=== PATIENT | male | born 1990 | race Caucasian/White ===

== ENCOUNTER 2017-06-09 09:52 | Observation (INO) | payer MEDICAID ==
[2017-06-09] VITALS (11 sets, daily range): BP systolic 95–132; BP diastolic 53–72; PULSE 50–64; RESP 17–20; TEMP 97.8–98.9; O2SAT 98–100
--- NOTE | 2017-06-09 10:34 | PD ---
HPI Chief Complaint: Chest Pain Time Seen by Provider: 10:34 Travel History International Travel<30 days: No Contact w/Intl Traveler<30days: No Traveled to known affect area: No History of Present Illness HPI 26-year-old male came to the emergency room with history of left-sided chest pain. Patient has been there on and off for past 1 month. Pain is worse on movement. No history of shortness of breath. No history of chest trauma. Patient is a smoker. Some family history of cardiac disease especially in his mother. Vital signs were stable. Patient is otherwise a healthy person. [facility] Past Medical History Narrative Medical List of his past medical, surgical, social and family history is read from the nursing note. Medical History: Denies Significant Hx Diminished Hearing: No Tetanus Vaccination: > 5 Years Influenza Vaccination: No Past Surgical History Surgical History: No Previous Surgery Social History Alcohol Use: No Tobacco Use: Yes (4 cigarrettes per day) Substance Use: No Allergies-Medications (Allergen,Severity, Reaction): Coded Allergies: No Known Allergies (Unverified , 06/09/17) Comments No known drug allergies. Reported Meds & Prescriptions Reported Meds & Active Scripts Active No Active Prescriptions or Reported Medications Narrative Medication List of his home medications reviewed from the nursing note. Review of Systems Except as stated in HPI: all other systems reviewed are Neg Physical Exam Narrative GENERAL: Awake, alert, mild distress SKIN: Focused skin assessment warm/dry. HEAD: Atraumatic. Normocephalic. EYES: Pupils equal and round. No scleral icterus. No injection or drainage. ENT: No nasal bleeding or discharge. Mucous membranes pink and moist. NECK: Trachea midline. No JVD. CARDIOVASCULAR: Regular rate and rhythm. No murmur appreciated. RESPIRATORY: No accessory muscle use. Clear to auscultation. Breath sounds equal bilaterally. GASTROINTESTINAL: Abdomen soft, non-tender, nondistended. Hepatic and splenic margins not palpable. MUSCULOSKELETAL: No obvious deformities. No clubbing. No cyanosis. No edema. NEUROLOGICAL: Awake and alert. No obvious cranial nerve deficits. Motor grossly within normal limits. Normal speech. PSYCHIATRIC: Appropriate mood and affect; insight and judgment normal. Data Data Last Documented VS Vital Signs Date Time Temp Pulse Resp B/P Pulse Ox O2 Delivery O2 Flow Rate FiO2 06/09/17 10:50 50 17 125/67 99 Room Air 119/59 06/09/17 09:54 98.2 Orders Electrocardiogram (06/09/17 10:50) Basic Metabolic Panel (Bmp) (06/09/17 10:50) Ckmb (Isoenzyme) Profile (06/09/17 10:50) Complete Blood Count With Diff (06/09/17 10:50) Magnesium (Mg) (06/09/17 10:50) Prothrombin Time / Inr (Pt) (06/09/17 10:50) Troponin I (06/09/17 10:50) Chest, Single Ap (06/09/17 10:50) Ecg Monitoring (06/09/17 10:50) Bilateral Bp Monitoring (06/09/17 10:50) Iv Access Insert/Monitor (06/09/17 10:50) Oximetry (06/09/17 10:50) Oxygen Administration (06/09/17 10:50) Aspirin Chew (Aspirin Chew) (06/09/17 11:00) Sodium Chloride 0.9% Flush (Ns Flush) (06/09/17 11:00) CKMB (06/09/17 10:55) CKMB% (06/09/17 10:55) Admit Order (Ed Use Only) (06/09/17 12:02) Labs Laboratory Tests Test 06/09/17 10:55 White Blood Count 11.9 TH/MM3 Red Blood Count 5.40 MIL/MM3 Hemoglobin 14.9 GM/DL Hematocrit 45.1 % Mean Corpuscular Volume 83.5 FL Mean Corpuscular Hemoglobin 27.7 PG Mean Corpuscular Hemoglobin 33.1 % Concent Red Cell Distribution Width 13.1 % Platelet Count 192 TH/MM3 Mean Platelet Volume 9.5 FL Neutrophils (%) (Auto) 60.9 % Lymphocytes (%) (Auto) 26.4 % Monocytes (%) (Auto) 9.7 % Eosinophils (%) (Auto) 2.6 % Basophils (%) (Auto) 0.4 % Neutrophils # (Auto) 7.2 TH/MM3 Lymphocytes # (Auto) 3.1 TH/MM3 Monocytes # (Auto) 1.2 TH/MM3 Eosinophils # (Auto) 0.3 TH/MM3 Basophils # (Auto) 0.0 TH/MM3 CBC Comment DIFF FINAL Differential Comment Prothrombin Time 12.6 SEC Prothromb Time International 1.1 RATIO Ratio Sodium Level 140 MEQ/L Potassium Level 3.7 MEQ/L Chloride Level 106 MEQ/L Carbon Dioxide Level 26.6 MEQ/L Anion Gap 7 MEQ/L Blood Urea Nitrogen 15 MG/DL Creatinine 1.06 MG/DL Estimat Glomerular Filtration 83 ML/MIN Rate Random Glucose 83 MG/DL Calcium Level 9.4 MG/DL Magnesium Level 2.1 MG/DL Total Creatine Kinase 117 U/L Creatine Kinase MB 1.2 NG/ML Troponin I LESS THAN 0.02 NG/ML MDM Medical Decision Making Medical Screen Exam Complete: Yes Emergency Medical Condition: Yes Medical Record Reviewed: Yes Interpretation(s) Twelve-lead EKG was reviewed by me. Normal sinus rhythm, normal axis, bradycardia, nonspecific ST-T wave changes. Heart rate of 56 bpm. Differential Diagnosis ACS, non-STEMI, nonspecific chest pain Narrative Course 11:57 AM blood test results is back and within normal limit. Chest x-rays within normal limit. Patient will be admitted to the chest pain center. Procedures EKG Prior to Arrival: No Diagnosis Primary Impression: Chest pain Qualified Code: R07.9 - Chest pain, unspecified type Admitting Information Admitting Physician Requests: Observation Scripts No Active Prescriptions or Reported Meds Mohsen Nixon MD Jun 09, 2017 10:34
[2017-06-09] MEDS ORDERED: SODIUM CHLORIDE 0.9% FLUSH 10 ML FLUSH IVF PRN (11:00)
[2017-06-09] MEDS ORDERED: ASPIRIN 81 MG CHEW TAB PO ONE (11:00)
[2017-06-09 11:33] LABS: AUTOMATED NEUTROPHIL # 7.2 TH/MM3 (1.8-7.7); BASOPHIL % 0.4 % (0.0-2.0); EOSINOPHIL # 0.3 TH/MM3 (0-0.4); EOSINOPHIL % 2.6 % (0.0-4.0); HEMATOCRIT 45.1 % (39.0-51.0); HEMO FLAGS DIFF FINAL; LYMPH % 26.4 % (9.0-44.0); LYMPHOCYTE # 3.1 TH/MM3 (1.0-4.8); MEAN CELL VOLUME 83.5 FL (80.0-100.0); MEAN CORPUSCULAR HEMOGLOBIN 27.7 PG (27.0-34.0); MEAN CORPUSCULAR HGB CONC 33.1 % (32.0-36.0); MONO % 9.7 % (0.0-8.0); NEUT % 60.9 % (16.0-70.0); PLATELET COUNT 192 TH/MM3 (150-450); RED CELL DISTRIBUTION WIDTH 13.1 % (11.6-17.2); WHITE BLOOD COUNT 11.9 TH/MM3 (4.0-11.0)
[2017-06-09 11:35] LABS: INTERNATIONAL NORMALIZED RATIO 1.1 RATIO; PROTHROMBIN TIME - PATIENT 12.6 SEC (9.8-11.6)
[2017-06-09 11:49] LABS: ANION GAP 7 MEQ/L (5-15); BICARBONATE 26.6 MEQ/L (21.0-32.0); BLOOD UREA NITROGEN 15 MG/DL (7-18); CHLORIDE 106 MEQ/L (98-107); GLOMERULAR FILTRATION RATE 83 ML/MIN (>89); MAGNESIUM 2.1 MG/DL (1.5-2.5); POTASSIUM 3.7 MEQ/L (3.5-5.1); SODIUM (NA) 140 MEQ/L (136-145)
--- NOTE | 2017-06-09 11:53 | EKG ---
Date Performed: 06/09/2017 Time Performed: 10:36:52 PTAGE: 26 years EKG: SINUS BRADYCARDIA INDETERMINATE AXIS NONSPECIFIC ST ELEVATION ABNORMAL ECG NO PREVIOUS TRACING DOCTOR: Tai Boogie Interpretating Date/Time 06/09/2017 11:51:38
[2017-06-09 11:55] LABS: CREATINE KINASE 117 U/L (39-308)
--- NOTE | 2017-06-09 11:59 | RADRPT ---
EXAM DATE/TIME: 06/09/2017 11:21 [facility] COMPARISON: No previous studies available for comparison. INDICATIONS : LLQ pain 3 weeks, with shortness of breath. MEDICAL HISTORY : None. SURGICAL HISTORY : None. ENCOUNTER: Initial ACUITY: 3 weeks PAIN SCORE: 8/10 LOCATION: Left chest FINDINGS: The lungs are clear without infiltrate, nodule, or mass. There is no appreciable pleural effusion fo r technique. Heart and mediastinum are unremarkable. CONCLUSION: No acute cardiopulmonary disease. Angel Esparza MD on June 09, 2017 at 11:58 Board Certified Radiologist. This report was verified electronically.
[2017-06-09] MEDS ORDERED: ACETAMINOPHEN 500 MG CPLT PO PRN (12:30)
[2017-06-09] MEDS ORDERED: ONDANSETRON HCL 4 MG/2 ML VIAL IV PRN (12:30)
[2017-06-09] MEDS ORDERED: NITROGLYCERIN 0.4 MG SL 25 TABS/BTL SL PRN (12:30)
[2017-06-09 13:03] LABS: CKMB 1.2 NG/ML (0.5-3.6)
--- NOTE | 2017-06-09 14:09 | HHI.HP ---
HPI Primary Care Physician No Primary Care Physician Chief Complaint Chest pain History of Present Illness 26-year-old male with no significant medical history presents to the emergency room for further evaluation of chest pain. Onset "many months, hurting worse last 3 weeks." Frequency of episodes vary from daily to every few days. Location left anterior chest. Characterized as a sharp pressure. Duration 10 20 minutes. No radiation of pain. Associated symptoms shortness of breath and occasionally hurting to take a deep breath. Denies nausea, vomiting, or diaphoresis. Precipitating factors when he gets "stressed out or angry." Relieving factors none. Occasionally he will pass out because the pain is so severe. Last episode of chest pain with LOC x2 days ago. Witnessed by his brother. Loss of consciousness approximately 5 minutes. Reports he knows before pass outing as he becomes "short of breath, my heart races, and I feel dizzy." Moved from [place] 3 years ago. Reports never seen a physician or have been in the hospital. Reports having childhood vaccinations. Interview and assessment completed with [employer] interpretation services and in nurses presence. (Mayda Mark) Review of Systems General: Increased fatigue 3 weeks. No weakness, fever, chills, or recent illness. Decreased appetite 3 weeks. Drinking plenty of fluids. HEENT: No MARTINS, no vision changes CV: As stated above. No current chest pain, pressure, or dizziness. RESP: No SOB or cough GI: No nausea, vomiting, or bowel changes. : No dysuria EXT: Reports dependent bilateral lower leg edema after working, resolves with elevation of legs. MS: Bilateral feet "sore after working all day." No current soreness. Stresses concern over his feet hurting and swelling of legs. NEURO: "Fainting spells" accompanied with chest pain, dizziness, and palpitations. No difficulty with balance or motor/sensory deficits. PSYCH: No anxiety, depression SKIN: No rashes, no concerning lesions (Mayda Mark) Past Family Social History Allergies: Coded Allergies: No Known Allergies (Unverified , 06/09/17) Past Medical History None Past Surgical History None Reported Medications Active No Active Prescriptions or Reported Medications Active Ordered Medications Current Medications Medications (Trade) Dose Ordered Sig/Juan Luis Route Start Time Stop Time Status Last Admin (Tylenol) 500 mg Q4H PRN PO 06/09/17 12:30 (Zofran Inj) 4 mg Q6H PRN IV 06/09/17 12:30 (Nitrostat Sl) 0.4 mg Q5M PRN SL 06/09/17 12:30 (Aspirin) 325 mg DAILY PO 06/10/17 09:00 Family History Mother-" the same issue with chest pain and fainting." No known coronary artery disease in family. Father's history is unknown. Social History No known diabetes, hypertension, hyperlipidemia. Smokes 5 cigarettes/daily. Denies any alcohol or illegal drugs. 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 Past cardiac testing None (Mayda Mark) Physical Exam Vital Signs Vital Signs Date Time Temp Pulse Resp B/P Pulse Ox O2 Delivery O2 Flow Rate FiO2 06/09/17 13:07 97.8 58 17 103/58 99 06/09/17 13:02 97.8 60 18 103/58 98 Room Air 06/09/17 12:34 98 21 06/09/17 10:50 50 17 125/67 99 Room Air 119/59 06/09/17 10:50 17 99 Room Air 06/09/17 10:50 99 Room Air 06/09/17 10:28 60 17 99 06/09/17 09:54 98.2 64 20 132/72 100 Room Air Physical Exam GENERAL: Alert WN, WD, NAD, pleasant, Cuban-speaking, male HEAD: NC, AT EYES: Sclera clear, conjunctiva pale, pupils equal and round ENT: Mucous membranes pink and moist, no nasal discharge or bleeding NECK: Supple, no masses, trachea midline CV: RRR, without murmur, rub, or gallop. No murmur in left lateral position. No JVD, S1-S2 no S3-S4. No carotid bruits. RESP: Clear lungs throughout bilateral, no crackles, wheeze, rhonchi, symmetrical chest rise, nonlabored, able to speak in full sentences ABD: Soft, NT, ND, no masses, positive bowel tones EXT: Pulses +24, no dependent edema MS: Normal tone 4 extremities, nontender, no obvious deformities, full range of motion NEURO: CN II through CN XII grossly intact, motor strength 5/5, gait WNL PSYCH: A+O 3, pleasant affect, appropriate speech, appropriate mood and affect , insight and judgment SKIN: Normal turgor, normal texture, no lesions, no rashes, brisk cap refill, even hair distribution Laboratory Laboratory Tests Test 06/09/17 10:55 White Blood Count 11.9 Red Blood Count 5.40 Hemoglobin 14.9 Hematocrit 45.1 Mean Corpuscular Volume 83.5 Mean Corpuscular Hemoglobin 27.7 Mean Corpuscular Hemoglobin 33.1 Concent Red Cell Distribution Width 13.1 Platelet Count 192 Mean Platelet Volume 9.5 Neutrophils (%) (Auto) 60.9 Lymphocytes (%) (Auto) 26.4 Monocytes (%) (Auto) 9.7 Eosinophils (%) (Auto) 2.6 Basophils (%) (Auto) 0.4 Neutrophils # (Auto) 7.2 Lymphocytes # (Auto) 3.1 Monocytes # (Auto) 1.2 Eosinophils # (Auto) 0.3 Basophils # (Auto) 0.0 CBC Comment DIFF FINAL Differential Comment Prothrombin Time 12.6 Prothromb Time International 1.1 Ratio Sodium Level 140 Potassium Level 3.7 Chloride Level 106 Carbon Dioxide Level 26.6 Anion Gap 7 Blood Urea Nitrogen 15 Creatinine 1.06 Estimat Glomerular Filtration 83 Rate Random Glucose 83 Calcium Level 9.4 Magnesium Level 2.1 Total Creatine Kinase 117 Creatine Kinase MB 1.2 Troponin I LESS THAN 0.02 (Mayda Mark) Result Diagram: 06/09/17 1055 06/09/17 1055 Imaging Last Impressions Chest X-Ray 06/09/17 1050 Signed Impressions: Service Date/Time: May 11:21 - CONCLUSION: No acute cardiopulmonary disease. Angel Esparza MD Course EKG Normal sinus bradycardic rhythm, nonspecific ST changes (Mayda Mark) Assessment and Plan Assessment and Plan #1 Atypical chest painadmitted to chest pain center. Rule out with serial EKGs , cardiac enzymes, and monitored overnight. Seen and evaluated by Dr. Jose Hall. Plan for exercise treadmill in a.m. Patient agreeable to plan of care. #2 Syncopal episodesmost likely vasovagal. If stress test, unremarkable will discharge and encouraged follow-up with PCP for possible Holter monitor. Case management consult has been made for possible admittance to [facility]. (Mayda Mark) Assessment and Plan Atypical chest pain. Syncopa; episodes likely vasovagal. Will watch overnight. Stress test in AM. Will plan out-patient holter if rhythm normal through the night. (Jose Hall MD) Mayda Mark Jun 09, 2017 14:09 Jose Hall MD Jun 09, 2017 15:54
[2017-06-09 14:57] LABS: CREATINE KINASE 93 U/L (39-308)
[2017-06-09 18:06] LABS: CREATINE KINASE 86 U/L (39-308)
[2017-06-09] MEDS: SODIUM CHLORIDE 0.9% FLUSH 10 ML FLUSH IV FLUSH SCH (23:05)
[2017-06-10 00:22] VITALS: PULSE 61
[2017-06-10 05:15] VITALS: BP 99/55; PULSE 55; RESP 20; TEMP 98; O2SAT 100
[2017-06-10 07:15] VITALS: PULSE 43
[2017-06-10] MEDS: SODIUM CHLORIDE 0.9% FLUSH 10 ML FLUSH IV FLUSH SCH (09:00)
[2017-06-10] MEDS ORDERED: ASPIRIN 325 MG TAB PO SCH (09:00)
--- NOTE | 2017-06-10 09:25 | HHI.DCPOC ---
Discharge Care Plan Diagnosis: (1) Chest pain (2) Tobacco abuse Goals to Promote Your Health * To prevent worsening of your condition and complications * To maintain your health at the optimal level Directions to Meet Your Goals Take your medications as prescribed Follow your dietary instruction Follow activity as directed Keep your appointments as scheduled Take your immunizations and boosters as scheduled If your symptoms worsen call your PCP, if no PCP go to Urgent Care Center or Emergency Room Smoking is Dangerous to Your Health. Avoid second hand smoke Call the 24-hour hour crisis hotline for domestic abuse at Mikhail James Jun 10, 2017 09:25
--- NOTE | 2017-06-10 15:37 | EKG ---
Date Performed: 06/09/2017 Time Performed: 17:14:05 PTAGE: 26 years EKG: SINUS BRADYCARDIA INDETERMINATE AXIS BORDERLINE ECG PREVIOUS TRACING : 06/09/2017 14.11 Since previous tracing, no significant change noted DOCTOR: Jose Hall Interpretating Date/Time 06/10/2017 15:37:08
--- NOTE | 2017-06-10 15:38 | EKG ---
Date Performed: 06/09/2017 Time Performed: 14:11:55 PTAGE: 26 years EKG: SINUS BRADYCARDIA INDETERMINATE AXIS PREVIOUS TRACING : 06/09/2017 10.36 Since previous tracing, no significant change noted DOCTOR: Jose Hall Interpretating Date/Time 06/10/2017 15:37:46
--- NOTE | 2017-06-10 15:41 | TR ---
Date Performed: 06/10/2017 Time Performed: 07:23:57 DOCTOR: Jose Hall DRUG LIST: CLINICAL HISTORY: REASON FOR TEST: Chest pain REASON FOR ENDING: OBSERVATION: CONCLUSION: MAYANK PROTOCOL ETT. NO CP. TEST STOPPED AFTER EXCEEDING GOAL HR SECONDARY SOB AND LE G FATIGUE AFTER EXCEEDING GOAL HR.Maximum KR=091 % Max HR Achieved=90.0% Maximum UK=615/92 Total Exer cise Time=10:36 COMMENTS: Patient exercised using the Mayank protocol. No electrocardiographic changes were seen to suggest ischemia. Hemodynamic response to exercise was normal. No significant arrhythmia was prese nt.
== END 2017-06-10 11:40 | disposition home or self-care (01) ==
LOC: NEPE 09:52 → NEDA 12:04 → NEPGCP 13:30
PROVIDERS: ADMIT Internal Medicine Cardiovascular Disease; ATTEND Internal Medicine Cardiovascular Disease
DX: R07.89 Other chest pain (principal); R55 Syncope and collapse; R00.1 Bradycardia, unspecified; R06.02 Shortness of breath; R42 Dizziness and giddiness; R53.83 Other fatigue; R60.0 Localized edema; M79.671 Pain in right foot; M79.672 Pain in left foot; R10.32 Left lower quadrant pain; R94.31 Abnormal electrocardiogram [ECG] [EKG]; F17.210 Nicotine dependence, cigarettes, uncomplicated; Z82.49 Family history of ischemic heart disease and other diseases of the circulatory system
CPT/HCPCS: 71010; 80048; 82550; 82552; 83735; 84484; 85025; 85610; 93005; 93017; 99285; G0378